=== PATIENT | female | born 1970 | race Caucasian/White ===

== ENCOUNTER 2019-07-04 15:57 | Outpatient (CLI) | payer BC, SELFPAY ==
--- NOTE | ~2019-07-04 | US_ITS ---
EXAMINATION: US venous doppler LE RT DATE: 07/04/2019 16:35 INDICATION: Right calf pain. TECHNIQUE: Grayscale ultrasound images without and with compression and Doppler ultrasound images of the right lower extremity veins were obtained. COMPARISON: None. FINDINGS: The visualized portions of right common femoral vein, profunda (deep) femoral vein, femoral vein, pop liteal vein, peroneal veins, posterior tibial veins, and greater saphenous vein outflow are patent. IMPRESSION: 1. No deep venous thrombosis. Reviewed, dictated and finalized at location A. MOTIVE INSPECTOR
--- NOTE | ~2019-07-04 | XR_ITS ---
EXAMINATION: XR chest 2V DATE: 07/04/2019 16:46 INDICATION: Atypical chest pain. TECHNIQUE: Frontal and lateral views of the chest were obtained. COMPARISON: CT abdomen and pelvis 06/05/2017 FINDINGS: There is mild atelectasis in left lower lung zone. There is mild scarring at the lung apice s. No pleural effusion or pneumothorax. The heart size is normal. There are bilateral breast implants . IMPRESSION: 1. Mild atelectasis in left lower lung zone and mild scarring at the lung apices. Reviewed, dictated and finalized at location A. DING SUPERINTENDENT IMPRESSION: 1. Mild atelectasis in left lower lung zone and mild scarring at the lung apice s.
== END 2019-07-04 15:58 ==
PROVIDERS: Visit Provider Internal Medicine
DX: R07.89 Other chest pain (principal); M79.661 Pain in right lower leg; R91.8 Other nonspecific abnormal finding of lung field
CPT/HCPCS: 71046; 93971

== ENCOUNTER 2020-04-29 11:41 | Emergency (ER) | payer OTHER, BC, SELFPAY ==
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
[2020-04-29 11:59] VITALS: BP 132/75; PULSE 99; RESP 20; TEMP 37.4; O2SAT 98
== END 2020-04-29 12:37 | disposition home or self-care (01) ==
PROVIDERS: Emergency Provider Nurse Practitioner; PCP Internal Medicine
DX: M47.812 Spondylosis without myelopathy or radiculopathy, cervical region (principal); V49.50XA Passenger injured in collision with unspecified motor vehicles in traffic accident, initial encounter
CPT/HCPCS: 72040; 99213; G0463

== ENCOUNTER 2020-07-31 15:55 | Outpatient (CLI) | payer BC, SELFPAY ==
--- NOTE | ~2020-07-31 | XR_ITS ---
EXAMINATION: XR chest 2V DATE: 07/31/2020 16:56 INDICATION: Abnormal findings on diagnostic imaging of lungs. TECHNIQUE: Frontal and lateral views of the chest were obtained. COMPARISON: Chest 2 views 07/04/2019, CT abdomen and pelvis 06/05/2017 FINDINGS: The chest demonstrates clear lungs without pneumonia, pleural effusion, or pneumothorax. Th e heart size is normal. Breast implants are noted. IMPRESSION: 1. No acute cardiopulmonary disease. Reviewed, dictated and finalized at location A.
--- NOTE | ~2020-07-31 | XR_ITS ---
EXAMINATION: XR sacrum coccyx min 2V DATE: 07/31/2020 16:56 INDICATION: Pain in the coccyx. TECHNIQUE: 3 views of the sacrum and coccyx were obtained. COMPARISON: None. FINDINGS: Bone alignment is normal. No fracture. 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 IMPRESSION: 1. No fracture. Reviewed, dictated and finalized at location A. IMPRESSION: 1. No fracture.
== END 2020-07-31 15:56 ==
PROVIDERS: PCP Internal Medicine; Visit Provider Internal Medicine
DX: M53.3 Sacrococcygeal disorders, not elsewhere classified (principal); R91.8 Other nonspecific abnormal finding of lung field
CPT/HCPCS: 71046; 72220

== ENCOUNTER → 2020-08-24 15:50 | Outpatient (CLI) | payer BC, SELFPAY ==
--- NOTE | ~2020-08-24 | MM_ITS ---
EXAMINATION: MM scrn aurea implant BI w jennifer HISTORY: Screening mammogram TECHNIQUE: Craniocaudal and mediolateral oblique 3-D tomosynthesis images with implant displacement a nd synthetic 2-D images were generated. Craniocaudal and mediolateral oblique views of the breasts wi thout implant displacement were obtained using full field digital mammography. CAD analysis was submi tted and interpreted. COMPARISON: 02/07/2019, 09/10/2016 bilateral digital BREAST PARENCHYMAL COMPOSITION: The breasts are heterogeneously dense, which may obscure small masses . FINDINGS: Status post bilateral augmentation mammoplasty. There is no evidence of suspicious mass, ca lcification, or architectural distortion to suggest malignancy in either breast. There has been no christiansen spicious interval change. IMPRESSION: 1. No mammographic evidence of malignancy. 2. Recommend routine screening mammography in one year. BI-RADS Category 1: Negative Reviewed, dictated and finalized at location A.
== END ==
PROVIDERS: PCP Internal Medicine; Visit Provider Internal Medicine
DX: Z12.31 Encounter for screening mammogram for malignant neoplasm of breast (principal)
CPT/HCPCS: 77063; 77067

== ENCOUNTER → 2021-02-18 12:34 | Outpatient (CLI) | payer BC, SELFPAY ==
--- NOTE | ~2021-02-18 | XR_ITS ---
EXAMINATION: XR chest 2V 02/18/2021 12:55 INDICATION: Cough PROCEDURE: 2 view chest COMPARISON: 07/31/2020 FINDINGS: The lungs are clear. The cardiomediastinal silhouette is within normal limits. There are no pleural effusions. There is no pneumothorax suspected. IMPRESSION: 1: NO ACUTE CARDIOPULMONARY DISEASE. Reviewed, dictated and finalized at location B.
== END ==
PROVIDERS: PCP Internal Medicine; Visit Provider Internal Medicine
DX: R05.9 Cough, unspecified (principal)
CPT/HCPCS: 71046

== ENCOUNTER → 2021-02-25 14:48 | Outpatient (CLI) | payer BC, SELFPAY ==
--- NOTE | ~2021-02-25 | CT_ITS ---
EXAMINATION: CT diagnostic chest wo con DATE: 02/25/2021 15:08 INDICATION: Chronic cough TECHNIQUE: Computed tomography (CT) of the abdomen and pelvis was performed without intravenous contr ast. The dose-length product was 160.37 mGy-cm. Automated exposure control and iterative reconstructi on technique were employed. COMPARISON: Chest dated 02/18/2021. FINDINGS: No significant pleural or pericardial effusion. No thoracic lymphadenopathy. There are ilia st implants. Visualized aspects of the upper abdomen are unremarkable. No pneumothorax. No endobronch ial lesions. There is minimal dependent atelectasis. No suspicious pulmonary nodules or masses. No ac [place] bone or joint abnormality. IMPRESSION: 1. No findings to account for patient's symptoms. No acute cardiopulmonary disease. Reviewed, dictated and finalized at location A. IMPRESSION: 1. No findings to account for patient's symptoms. No acute cardiopulmonary dise ase.
== END ==
PROVIDERS: PCP Internal Medicine; Visit Provider Internal Medicine
DX: R05.9 Cough, unspecified (principal)
CPT/HCPCS: 71250

== ENCOUNTER 2021-09-04 07:53 | Outpatient (CLI) | payer BC, SELFPAY ==
--- NOTE | ~2021-09-04 | CT_ITS ---
EXAMINATION: CT abdomen pelvis wo/w con DATE: 09/04/2021 08:24 INDICATION: Right lower quadrant pain TECHNIQUE: Computed tomography (CT) of the abdomen and pelvis was performed without intravenous contr ast. CT of the abdomen and pelvis was then performed with a total of 100 mL Omnipaque 350 intravenous contrast. The dose-length product (DLP) was 839.58 mGy-cm. Automated exposure control and iterative reconstruction technique were employed. COMPARISON: 06/05/2017 FINDINGS: Minimal dependent atelectasis is present in the lung bases. The heart size is normal. Bilat eral breast implants are noted. The liver, spleen, pancreas, gallbladder, and adrenal glands are norm al. The kidneys are unremarkable. No stones are identified in the kidneys, ureters, or bladder. There is no hydronephrosis or hydroureter. No pathologically enlarged abdominal or pelvic lymph nodes are identified. There is no free intraperitoneal gas or evidence of bowel obstruction. There is mild lumb ar spondylosis. There is a small volume of gas in the urinary bladder. IMPRESSION: 1. Small volume of gas in the urinary bladder of unclear origin. Correlate for history of catheteriza tion. In the absence of such history, recommend urinalysis. Reviewed, dictated and finalized at location A. IMPRESSION: 1. Small volume of gas in the urinary bladder of unclear origin. Correlate for history of catheterization. In the absence of such history, recommend urinalysi s.
== END 2021-09-04 07:54 ==
PROVIDERS: PCP Internal Medicine
DX: R10.31 Right lower quadrant pain (principal)
CPT/HCPCS: 74178; Q9967

== ENCOUNTER → 2021-10-29 11:34 | Outpatient (CLI) | payer BC, SELFPAY ==
--- NOTE | ~2021-10-29 | MM_ITS ---
EXAMINATION: MM scrn aurea implant BI w jennifer HISTORY: Screening mammogram TECHNIQUE: Craniocaudal and mediolateral oblique 3-D tomosynthesis images with implant displacement a nd synthetic 2-D images were generated. Craniocaudal and mediolateral oblique views of the breasts wi thout implant displacement were obtained using full field digital mammography. CAD analysis was submi tted and interpreted. COMPARISON: Comparison to multiple prior studies sequentially, with oldest reviewed study dated 11/2018. BREAST PARENCHYMAL COMPOSITION: The breasts are heterogeneously dense, which may obscure small masses . FINDINGS: There are bilateral subpectoral breast implants. There is no evidence of suspicious mass, c alcification, or architectural distortion to suggest malignancy in either breast. There has been no s uspicious interval change. IMPRESSION: 1. No mammographic evidence of malignancy. 2. Recommend routine screening mammography in one year. BI-RADS Category 1: Negative Reviewed, dictated and finalized at location A.
== END ==
PROVIDERS: PCP Internal Medicine
DX: Z12.31 Encounter for screening mammogram for malignant neoplasm of breast (principal)
CPT/HCPCS: 77063; 77067

== ENCOUNTER → 2023-02-02 11:47 | Outpatient (CLI) | payer BC, SELFPAY ==
--- NOTE | ~2023-02-02 | XR_ITS ---
EXAMINATION: XR chest 2V Exam Date/Time: 02/02/2023 12:12 CDT HISTORY: Bronchitis, not specified as acute or chronic Comparison: 02/18/2021; CT chest 02/25/2021. RESULT: Lines, tubes, and devices: None. Lungs and pleura: Clear. Cardiomediastinal silhouette: Stable. Other: No acute osseous or upper abdominal finding. IMPRESSION: No acute cardiopulmonary process. Reviewed, dictated and finalized at location K.
== END ==
PROVIDERS: PCP Internal Medicine; Visit Provider Internal Medicine
DX: Z12.31 Encounter for screening mammogram for malignant neoplasm of breast (principal); J40 Bronchitis, not specified as acute or chronic
CPT/HCPCS: 71046

== ENCOUNTER → 2023-05-12 16:34 | Outpatient (CLI) | payer OTHER, SELFPAY ==
--- NOTE | ~2023-05-12 | MM_ITS ---
EXAMINATION: MM scrn aurea implant BI w jennifer HISTORY: Screening mammogram TECHNIQUE: Craniocaudal and mediolateral oblique 3-D tomosynthesis images with implant displacement a nd synthetic 2-D images were generated. Craniocaudal and mediolateral oblique views of the breasts wi thout implant displacement were obtained using full field digital mammography. CAD analysis was submi tted and interpreted. COMPARISON: 10/21/2021, 08/24/2020, 02/17/2019 BREAST PARENCHYMAL COMPOSITION: There are scattered areas of fibroglandular density. FINDINGS: There is no evidence of suspicious mass, calcification, or architectural distortion to sugg est malignancy in either breast. There has been no suspicious interval change. IMPRESSION: 1. No mammographic evidence of malignancy. 2. Recommend routine screening mammography in one year. BI-RADS Category 1: Negative Reviewed, dictated and finalized at location A. TRY PRINTER APPRENTICE
== END ==
PROVIDERS: PCP Internal Medicine; Visit Provider Internal Medicine
DX: Z12.31 Encounter for screening mammogram for malignant neoplasm of breast (principal); J40 Bronchitis, not specified as acute or chronic
CPT/HCPCS: 77063; 77067

== ENCOUNTER 2024-05-17 16:10 | Outpatient (CLI) | payer OTHER, SELFPAY ==
--- NOTE | ~2024-05-17 | MM_ITS ---
EXAMINATION: MM scrn aurea implant BI w jennifer HISTORY: Screening mammogram, family history of breast cancer in her mother. TECHNIQUE: Craniocaudal and mediolateral oblique 3-D tomosynthesis images with implant displacement a nd synthetic 2-D images were generated. Craniocaudal and mediolateral oblique views of the breasts wi thout implant displacement were obtained using full field digital mammography. CAD analysis was submi tted and interpreted. COMPARISON: 05/12/2023, 10/29/2021, 08/24/2020 BREAST PARENCHYMAL COMPOSITION: There are scattered areas of fibroglandular density. FINDINGS: There is no evidence of suspicious mass, calcification, or architectural distortion to sugg est malignancy in either breast. There has been no suspicious interval change. IMPRESSION: No mammographic evidence of malignancy. Recommend routine screening mammography in one year. BI-RADS Category 1: Negative Reviewed, dictated and finalized at [facility]. JOGGER
== END 2024-05-17 16:11 | disposition home or self-care (01) ==
LOC: MICIMG 16:11
PROVIDERS: PCP Internal Medicine
DX: Z12.31 Encounter for screening mammogram for malignant neoplasm of breast (principal); Z98.82 Breast implant status; Z80.3 Family history of malignant neoplasm of breast
CPT/HCPCS: 77063; 77067